=== PATIENT | female | born 1990 | race American Indian/Alaskan Native ===

== ENCOUNTER 2016-12-30 11:07 | Emergency (ER) | payer OTHER ==
[2016-12-30 11:14] VITALS: BP 116/77
--- NOTE | 2016-12-30 12:21 | Emergency Department Report ---
Chief Complaint: Dizziness Stated Complaint: DIZZINESS/BLOOD CLOT Time Seen by Provider: 12/30/16 12:07 - HPI History of Present Illness: 26-year-old female presents today for suture falling in the shower this morning. Denies head injury or loss of consciousness. Positive for dizziness, headache, breast tenderness 1.5 weeks. Positive for nausea, burning upon urination and vaginal discharge. Last menstrual period was December 20. Denies chest pain, shortness of breath, abdominal pain. - ROS Review of Systems: Per HPI - Exam Vital Signs: Vital Signs 12/30/16 11:11 Temperature 98.1 F Pulse Rate 67 Respiratory 16 Rate Blood Pressure 116/77 O2 Sat by Pulse 100 Oximetry Physical Exam: General: 26-year-old female in no acute distress. Well-developed, well- nourished. CV: Regular rate and rhythm. Lungs: Clear to auscultation bilaterally. Abdomen: No tenderness to palpation. MSE screening note: Focused history and physical exam performed. Due to findings the following was ordered: ED Disposition for MSE Condition: Stable
[2016-12-30 12:59] LABS: Basophils % (Auto) 0.5 % (0.0-1.8); Eosinophils % (Auto) 0.6 % (0.0-4.3); Hematocrit 40.8 % (30.3-42.9); Hemoglobin 13.5 gm/dl (10.1-14.3); Mean Corpuscular HGB Conc 33 % (30-34); Mean Corpuscular Hemoglobin 27 pg (28-32); Mean Corpuscular Volume 82 fl (79-97); Platelet Count 325 K/mm3 (140-440); Red Blood Count 4.95 M/mm3 (3.65-5.03); Red Cell Distribution Width 13.5 % (13.2-15.2); White Blood Count 5.4 K/mm3 (4.5-11.0)
[2016-12-30 13:00] LABS: Anion Gap 16 mmol/L; Blood Urea Nitrogen 10 mg/dL (7-17); Calcium 8.4 mg/dL (8.4-10.2); Carbon Dioxide 25 mmol/L (22-30); Chloride 100.3 mmol/L (98-107); Glucose 106 mg/dL (65-100); Potassium 3.8 mmol/L (3.6-5.0); Sodium 137 mmol/L (137-145)
[2016-12-30 13:10] LABS: Bilirubin,Urine NEG (Negative); Blood,Urine NEG (Negative); Ketones,Urine NEG (Negative); Leukocyte Esterase,Urine NEG (Negative); Mucus,Urine FEW /HPF; Nitrite,Urine NEG (Negative); Protein,Urine <15 mg/dL mg/dL (Negative)
--- NOTE | 2016-12-31 15:14 | ED Elopement Review ---
ED Pt Elopement review - Results review Lab results: Laboratory Tests 12/30/16 12/30/16 12/30/16 12:27 12:27 12:49 WBC 5.4 RBC 4.95 Hgb 13.5 Hct 40.8 MCV 82 MCH 27 L MCHC 33 RDW 13.5 Plt Count 325 Lymph % (Auto) 36.8 H [place] % (Auto) 5.9 Eos % (Auto) 0.6 Baso % (Auto) 0.5 Lymph # 2.0 [place] # 0.3 Eos # 0.0 Baso # 0.0 Seg Neutrophils % 56.2 Seg Neutrophils # 3.0 Sodium 137 Potassium 3.8 Chloride 100.3 Carbon Dioxide 25 Anion Gap 16 BUN 10 Creatinine 0.5 L Estimated GFR > 60 BUN/Creatinine Ratio 20.00 Glucose 106 H Calcium 8.4 Urine Color Yellow Urine Turbidity Clear Urine pH 6.0 Ur Specific [place] 1.023 Urine Protein <15 mg/dl Urine Glucose (UA) Neg Urine Ketones Neg Urine Blood Neg Urine Nitrite Neg Urine Bilirubin Neg Urine Urobilinogen 2.0 Ur Leukocyte Esterase Neg Urine WBC (Auto) 1.0 Urine RBC (Auto) 4.0 U Epithel Cells (Auto) 4.0 Urine Mucus Few Urine HCG, Qual Negative - Call Back decision Pt Call Back Decision: No action required
== END 2016-12-30 22:30 | disposition left against medical advice (07) ==
LOC: ED 11:07
DX: R42 Dizziness and giddiness (principal); R51 Headache; R11.0 Nausea; Z53.21 Procedure and treatment not carried out due to patient leaving prior to being seen by health care provider
CPT/HCPCS: 36415; 80048; 81001; 81025; 85025

== ENCOUNTER 2019-12-17 21:56 | Emergency (ER) | payer SELFPAY ==
[2019-12-17 22:51] VITALS: BP 112/72
[2019-12-18 00:21] LABS: Bilirubin,Urine NEG (Negative); Blood,Urine LG (Negative); Color,Urine Amber (Yellow); Mucus,Urine 3+ /HPF
[2019-12-18 00:24] LABS: Basophils % (Auto) 0.7 % (0.0-1.8); Eosinophils # (Auto) 0.1 K/mm3 (0.0-0.4); Eosinophils % (Auto) 0.9 % (0.0-4.3); Hematocrit 38.5 % (30.3-42.9); Hemoglobin 13.1 gm/dl (10.1-14.3); Lymphocytes # (Auto) 2.8 K/mm3 (1.2-5.4); Lymphocytes % (Auto) 43.7 % (13.4-35.0); Mean Corpuscular HGB Conc 34 % (30-34); Mean Corpuscular Volume 79 fl (79-97); Monocytes # (Auto) 0.4 K/mm3 (0.0-0.8); Monocytes % (Auto) 6.5 % (0.0-7.3); Platelet Count 365 K/mm3 (140-440); Red Blood Count 4.87 M/mm3 (3.65-5.03); Red Cell Distribution Width 14.5 % (13.2-15.2)
[2019-12-18 00:27] LABS: RBC,Urine > 182.0 /HPF (0.0-6.0)
== END 2019-12-18 05:37 | disposition left against medical advice (07) ==
LOC: ED 21:56
DX: R42 Dizziness and giddiness (principal); Z53.21 Procedure and treatment not carried out due to patient leaving prior to being seen by health care provider
CPT/HCPCS: 36415; 81001; 84703; 85025; 87086